=== PATIENT | female | born 1950 | race Caucasian/White ===

== ENCOUNTER → 2018-06-10 | Outpatient (CLI) | payer MEDICARE ==
[~2018-06-10] MED LIST: ASPI-496 PO; HYDR25TA6 PO; LEVO50TA5 PO; LOSA100T7 PO; PARO30TA3 PO; TOPI100T8 PO; TYLENOL PM PO
[2018-06-10 10:22] LABS: BASOPHILS # (AUTO) 0.04 x10^3/uL (0-0.1); BASOPHILS % (AUTO) 1 % (0-1); EOSINOPHILS # (AUTO) 0.05 x10^3/uL (0-0.4); EOSINOPHILS % (AUTO) 1 % (1-7); LYMPHOCYTES # (AUTO) 1.61 x10^3/uL (1-3.4); LYMPHOCYTES % (AUTO) 26 % (22-44); MD NO; MEAN CORPUSCULAR HEMOGLOBIN 31.2 pg (27.0-34.8); MEAN CORPUSCULAR HGB CONC 34.5 g/dL (32.4-35.8); MEAN CORPUSCULAR VOLUME 90.2 fL (80-100); MEAN PLATELET VOLUME 9.1 fL (7.4-10.4); MONOCYTES # (AUTO) 0.37 x10^3/uL (0.2-0.8); MONOCYTES % (AUTO) 6 % (2-9); NEUTROPHILS # (AUTO) 4.23 x10^3/uL (1.8-6.8); NEUTROPHILS % (AUTO) 67 % (42-75); PLATELET COUNT 252 x10^3/uL (130-400); RED BLOOD COUNT 5.66 x10^6/uL (3.82-5.3); RED CELL DISTRIBUTION WIDTH 14.6 % (9.6-15.2)
[2018-06-10 10:35] LABS: ALBUMIN 3.5 g/dL (3.4-5.0); ANION GAP 3 mmol/L (5-15); CALCIUM 8.6 mg/dL (8.5-10.1); CHLORIDE 110 mmol/L (98-107)
[2018-06-10 10:38] LABS: CULTURE INDICATED? NO; MICROSCOPIC NOT IND
[2018-06-10 10:39] LABS: ALANINE AMINOTRANSFERASE 19 U/L (12-78); ALKALINE PHOSPHATASE 82 U/L (45-117); BILIRUBIN,TOTAL 0.4 mg/dL (0.2-1.0); TOTAL PROTEIN 7.4 g/dL (6.4-8.2)
[2018-06-10 11:25] LABS: INTERNATIONAL NORMALIZED RATIO 0.95 (0.93-1.1); PROTHROMBIN TIME 9.9 Seconds (9.6-11.5)
== END | disposition home or self-care (01) ==
LOC: STAR 09:07
PROVIDERS: ATTEND Orthopaedic Surgery Adult Reconstructive Orthopaedic Surgery
DX: Z01.818 Encounter for other preprocedural examination (principal); M16.12 Unilateral primary osteoarthritis, left hip; M25.552 Pain in left hip; F17.210 Nicotine dependence, cigarettes, uncomplicated
CPT/HCPCS: 36415; 80053; 81003; 85025; 85610; 85730; 87081; 93005

== ENCOUNTER 2018-06-21 09:13 | Inpatient (IN) | payer MEDICARE ==
[~2018-06-21] VITALS: Ht 170.2 cm; Wt 101.6 kg
[2018-06-21] MEDS ORDERED: LACTATED RINGERS 1,000 ML IV SCH (09:55)
[2018-06-21 10:01] VITALS: BP 125/83
[2018-06-21] MEDS ORDERED: ACETAMINOPHEN 500 MG TABLET ONE ×2 (11:07)
[2018-06-21] MEDS ORDERED: GABAPENTIN 300 MG CAPSULE ONE (11:07)
[2018-06-21] MEDS ORDERED: CEFAZOLIN 1,000 MG ONE (11:12)
[2018-06-21] MEDS ORDERED: DEXAMETHASONE 4 MG/ML, 1ML ONE (11:12)
[2018-06-21] MEDS ORDERED: GLYCOPYRROLATE 0.2MG/1ML, 5ML ONE (11:12)
[2018-06-21] MEDS ORDERED: NEOSTIGMINE 1 MG/ML, 10ML ONE (11:12)
[2018-06-21] MEDS ORDERED: LABETALOL 5MG/ML, 20ML ONE (11:12)
[2018-06-21] MEDS ORDERED: ROCURONIUM 10 MG/ML,10ML ONE (11:12)
[2018-06-21] MEDS ORDERED: PROPOFOL 10 MG/ML, 20ML ONE (11:12)
[2018-06-21] MEDS ORDERED: TRANEXAMIC ACID 100 MG/ML, 10ML ONE (11:31)
[2018-06-21] MEDS ORDERED: FENTANYL PF 250 MCG/5ML ONE ×2 (12:32)
[2018-06-21] MEDS ORDERED: FENTANYL PF 100 MCG/2ML ONE (12:57)
[2018-06-21] MEDS ORDERED: OXYcodone 5 MG/5 ML ORAL.SOL UDC ONE (12:58)
[2018-06-21] MEDS ORDERED: ONDANSETRON 2MG/ML, 2ML IV PRN (13:00)
[2018-06-21] MEDS ORDERED: hydrALAzine 20 MG/ML, 1ML IV PRN (13:00)
[2018-06-21] MEDS ORDERED: PROMETHAZINE 25 MG/ML, 1ML IV PRN (13:00)
[2018-06-21] MEDS ORDERED: SENNA/DOCUSATE TABLET PO PRN (13:00)
[2018-06-21] MEDS ORDERED: ZOLPIDEM 5MG TABLET PO PRN (13:00)
[2018-06-21] MEDS ORDERED: LABETALOL 5MG/ML, 20ML IV PRN (13:00)
[2018-06-21] MEDS ORDERED: HYDROcodone/APAP 5/325 TABLET PO PRN (13:00)
[2018-06-21] MEDS ORDERED: MAGNESIUM HYDROXIDE 8%, 30ML UDC PO PRN (13:00)
[2018-06-21] MEDS ORDERED: ALUMINUM/MAG/SIMETHICONE 30 ML UDC PO PRN (13:00)
[2018-06-21] MEDS ORDERED: PROMETHAZINE 25 MG/ML, 1ML IM PRN (13:00)
[2018-06-21] MEDS ORDERED: DIAZEPAM 5 MG TABLET PO PRN (13:00)
[2018-06-21] MEDS ORDERED: ACETAMINOPHEN 650 MG/20.3 ML UDC PO PRN (13:00)
[2018-06-21] MEDS ORDERED: DIPHENHYDRAMINE 50 MG CAPSULE PO PRN (13:00)
[2018-06-21] MEDS ORDERED: ONDANSETRON 4 MG TABLET PO PRN (13:00)
[2018-06-21] MEDS ORDERED: OXYcodone 5 MG/5 ML ORAL.SOL UDC PO PRN (13:00)
[2018-06-21] MEDS ORDERED: PROMETHAZINE 12.5 MG SUPP PR PRN (13:00)
[2018-06-21] MEDS ORDERED: HYDROmorphone 1 MG/ML, 1ML IV PRN ×2 (13:00)
[2018-06-21] MEDS: FENTANYL PF 100 MCG/2ML IV PRN ×2 (13:01→13:11)
[2018-06-21] MEDS ORDERED: TRANEXAMIC ACID 1,000 MG in SODIUM CHLORIDE 0.9% 100 ML IVPB ONE (13:30)
[2018-06-21 14:08] VITALS: BP 113/72
[2018-06-21] MEDS: D5%-0.45% NACL 1,000 ML IV SCH ×2 (14:10→21:45)
[2018-06-21] MEDS ORDERED: CEFAZOLIN PMX 2GM/50ML 50 ML IVPB SCH (15:00)
[2018-06-21] MEDS: ASPIRIN 81 MG TABLET EC PO SCH (18:32)
[2018-06-21 19:31] VITALS: BP 112/73
[2018-06-21] MEDS: CEFAZOLIN 2,000 MG in SODIUM CHLORIDE 0.9% 50 ML IVPB SCH (19:44)
[2018-06-21] MEDS ORDERED: PAROXETINE 10 MG TABLET PO SCH (21:00)
[2018-06-21] MEDS ORDERED: LOSARTAN 50MG TABLET PO SCH (21:00)
[2018-06-21] MEDS: TOPIRAMATE 100 MG TABLET PO SCH (21:18)
[2018-06-21 23:36] VITALS: BP 131/73
[2018-06-22] MEDS: OXYcodone IR 5MG TABLET PO PRN ×2 (00:13→04:18)
[2018-06-22 02:46] VITALS: BP 155/79
[2018-06-22] MEDS: CEFAZOLIN 2,000 MG in SODIUM CHLORIDE 0.9% 50 ML IVPB SCH (03:17)
[2018-06-22] MEDS: D5%-0.45% NACL 1,000 ML IV SCH (03:29)
[2018-06-22] MEDS: ASPIRIN 81 MG TABLET EC PO SCH (05:31)
[2018-06-22] MEDS ORDERED: ASPI-621 PO (06:26)
[2018-06-22] MEDS ORDERED: SENN1TAB8 PO (06:26)
[2018-06-22] MEDS ORDERED: OXYC5TAB3 PO (06:26)
[2018-06-22 06:58] VITALS: BP 119/73
[2018-06-22] MEDS ORDERED: LEVOTHYROXINE 25 MCG TABLET ONE (07:56)
[2018-06-22] MEDS: TOPIRAMATE 100 MG TABLET PO SCH (08:18)
[2018-06-22] MEDS ORDERED: HYDROCHLOROTHIAZIDE 25 MG TABLET PO SCH (09:00)
[2018-06-22] MEDS ORDERED: LEVOTHYROXINE 50 MCG TABLET PO SCH (09:00)
[2018-06-22 10:22] VITALS: BP 115/71
[2018-06-22] MEDS ORDERED: KETOROLAC 30 MG/1 ML IV SCH (13:00)
== END 2018-06-22 11:45 | disposition home or self-care (01) | DRG 470 ==
LOC: ORIP 09:29 → 4NOR 13:59 → DCLOUNGE 06-22 11:32
PROVIDERS: ADMIT Orthopaedic Surgery Adult Reconstructive Orthopaedic Surgery; ATTEND Orthopaedic Surgery Adult Reconstructive Orthopaedic Surgery
PROC: 0SRB03A Replacement of Left Hip Joint with Ceramic Synthetic Substitute, Uncemented, Open Approach (ICD-10-PCS; principal; 2018-06-21 11:30)
DX: M16.12 Unilateral primary osteoarthritis, left hip (principal); M16.11 Unilateral primary osteoarthritis, right hip; Z88.8 Allergy status to other drugs, medicaments and biological substances
CPT/HCPCS: 36415; 72170; 85014; 85018; 86850; 86900; C1713; G0378; J0690; J1100; J2704; J2710; J3010; J3490; C1776; J7120